=== PATIENT | female | born 1960 | race Asian ===

== ENCOUNTER 2018-08-13 13:21 | Outpatient (CLI) | payer OTHER | END 2018-08-13 19:26 | disposition home or self-care (01) | LOC: MAMMO 13:21 | DX: Z12.31 Encounter for screening mammogram for malignant neoplasm of breast (principal) ==

== ENCOUNTER 2019-10-08 13:08 | Outpatient (CLI) | payer OTHER | END 2019-10-08 20:11 | disposition home or self-care (01) | LOC: MAMMO 13:08 | DX: Z12.31 Encounter for screening mammogram for malignant neoplasm of breast (principal) ==

== ENCOUNTER 2019-11-07 13:23 | Outpatient (CLI) | payer OTHER | END 2019-11-07 22:43 | disposition home or self-care (01) | LOC: MAMMO 13:23 | DX: R92.8 Other abnormal and inconclusive findings on diagnostic imaging of breast (principal) ==

== ENCOUNTER 2020-02-18 13:25 | Outpatient (CLI) | payer OTHER | END 2020-02-18 22:29 | disposition home or self-care (01) | LOC: US 13:25 | DX: R92.2 Inconclusive mammogram (principal) ==

== ENCOUNTER 2020-02-20 14:04 | Outpatient (CLI) | payer OTHER | END 2020-02-20 19:04 | disposition home or self-care (01) | LOC: MAMMO 14:04 | DX: R92.2 Inconclusive mammogram (principal) | CPT/HCPCS: G0279 ==

== ENCOUNTER 2020-08-27 12:54 | Outpatient (CLI) | payer OTHER | END 2020-08-27 19:06 | disposition home or self-care (01) | LOC: MAMMO 12:54 | PROVIDERS: ATTEND Nurse Practitioner Family | DX: Z12.31 Encounter for screening mammogram for malignant neoplasm of breast (principal) ==

== ENCOUNTER 2022-06-30 13:23 | Emergency (ER) | payer OTHER ==
[~2022-06-30] VITALS: Ht 167.6 cm; Wt 80.7 kg
[2022-06-30 13:28] VITALS: BP 128/80; TEMP 98
[2022-06-30] MEDS ORDERED: RA OMEPRAZOLE20 MG PO (13:37)
== END 2022-06-30 14:49 | disposition home or self-care (01) ==
LOC: ED 13:23
DX: R22.41 Localized swelling, mass and lump, right lower limb (principal); S60.221A Contusion of right hand, initial encounter; W01.198A Fall on same level from slipping, tripping and stumbling with subsequent striking against other object, initial encounter; Y93.01 Activity, walking, marching and hiking; Y92.89 Other specified places as the place of occurrence of the external cause
CPT/HCPCS: 99283